=== PATIENT | male | born 1955 | race Caucasian/White ===

== ENCOUNTER → 2017-10-14 | Day surgery (SDC) | payer BC ==
[~2017-10-14] MED LIST: IV RINGERS,LACTATED 1000ML 1,000 ML IV; LIDOCAINE 2% PF Vial for OR 5 ML VIAL.; PROPOFOL 20 ML IV
[2017-10-14] MEDS: IV RINGERS,LACTATED 1000ML 1,000 ML IV (08:05)
== END | disposition home or self-care (01) ==
LOC: SURG 07:16
DX: K29.30 Chronic superficial gastritis without bleeding (principal); K26.9 Duodenal ulcer, unspecified as acute or chronic, without hemorrhage or perforation; I11.0 Hypertensive heart disease with heart failure; I50.9 Heart failure, unspecified; E78.00 Pure hypercholesterolemia, unspecified; I25.2 Old myocardial infarction; Z82.49 Family history of ischemic heart disease and other diseases of the circulatory system; Z79.82 Long term (current) use of aspirin; Z79.899 Other long term (current) drug therapy; Z95.1 Presence of aortocoronary bypass graft; Z98.890 Other specified postprocedural states; Z98.52 Vasectomy status; I25.10 Atherosclerotic heart disease of native coronary artery without angina pectoris; Z95.810 Presence of automatic (implantable) cardiac defibrillator; E66.9 Obesity, unspecified; I48.91 Unspecified atrial fibrillation; M19.90 Unspecified osteoarthritis, unspecified site; F19.90 Other psychoactive substance use, unspecified, uncomplicated; F17.200 Nicotine dependence, unspecified, uncomplicated
CPT/HCPCS: 43239; 88305; 88342; J2704

== ENCOUNTER 2018-09-01 06:48 | Outpatient (CLI) | payer MEDICARE ==
[~2018-09-01] VITALS: Ht 177.8 cm; Wt 108.9 kg
[2018-09-01] VITALS (11 sets, daily range): BP systolic 123–174; BP diastolic 84–111
[~2018-09-01 06:48] MED LIST changes: +APRE30TA2 PO; +ASPI-630 PO; +CETI10TA22 PO; +DOCU-109 PO; +GABA300C18 PO; +HYDR-2769 PO; -IV RINGERS,LACTATED 1000ML 1,000 ML IV; -LIDOCAINE 2% PF Vial for OR 5 ML VIAL.; +LISI-338 PO; +LISI10TA2 PO; +METO-239 PO; +METO200T46 PO; +POTA10TA12 PO; -PROPOFOL 20 ML IV; +SIMV40TA3 PO; +TRAM50TA PO; +[UNRECOGNIZED DRUG - REMARK]
[2018-09-01] MEDS ORDERED: FOLI1TAB16 PO (07:29)
[2018-09-01] MEDS ORDERED: METH2.5T PO (07:29)
[2018-09-01 07:36] LABS: HEMATOCRIT 50.8 % (39.0-53.0); HEMOGLOBIN 17.2 g/dL (13.0-17.5); RED BLOOD COUNT 5.5 x10^6/uL (4.30-5.70); RED CELL DISTRIBUTION WIDTH 15.1 % (11.5-14.5); WHITE BLOOD COUNT 7.9 x10^3/uL (4.0-11.0)
[2018-09-01] MEDS ORDERED: LIDOCAINE 1% Multi-Dose 20 ML VIAL. ONE (07:45)
[2018-09-01] MEDS ORDERED: IOHEXOL 300 MG/ML 100ML VIAL. ONE ×2 (07:45→09:07)
[2018-09-01] MEDS ORDERED: HEPARIN for ARTERIAL LINE 1,500 ML ONE (07:45)
[2018-09-01 07:47] LABS: PROTHROMBIN TIME PATIENT 11.8 SEC (11.7-14.0)
[2018-09-01 07:50] LABS: CALCIUM 9.2 mg/dL (8.5-10.1); CREATININE 0.9 mg/dL (0.7-1.3); GFR 85.2; POTASSIUM 4.2 mmol/L (3.5-5.1)
[2018-09-01] MEDS ORDERED: MIDAZOLAM HCL/PF 2 MG/2 ML VIAL. ONE (08:16)
[2018-09-01] MEDS ORDERED: fentaNYL PF VIAL 100 MCG/2 ML VIAL ONE (08:16)
--- NOTE | 2018-09-01 08:32 | PDOC ---
MODERATE SEDATION ASSESSMENT RISKS/ALTERNATIVES Risks/Alternatives Risks and alternatives of this type of sedation and procedure discussed with: RISK/ALTERNATIVES: Patient H & P ON CHART H & P H & P on chart and reviewed for co-morbid conditions and appropriate labs. H&P ON CHART: Yes STATUS PREG STATUS ASSESSED: N/A MEDS/ALLERGIES REVIEWED Meds/Allergies Reviewed Medications and Allergies including time and route of recently administered narcotics and sedatives. MEDS/ALLERGIES REVIEWED: Yes ASA RATING ASA RATING: II AIRWAY ASSESSMENT Airway Assessment Airway patency, oral function limitations, presence of caps, crowns, dentures, partials, and ability to extend neck assessed. AIRWAY ASSESSMENT: Yes MALLAMPATI SCORE MALLAMPATI SCORE: II PRE-SEDATION ASSESSMENT PRE-SEDATION ASSESSMENT: Yes NICHOLAS MIRELES MD Sep 01, 2018 08:31
[2018-09-01] MEDS ORDERED: HEPARIN for IV BOLUS 10,000 UNIT/10 ML VIAL. ONE (09:00)
[2018-09-01] MEDS ORDERED: fentaNYL PF VIAL 100 MCG/2 ML VIAL IV ONE (09:15)
[2018-09-01] MEDS ORDERED: MIDAZOLAM HCL/PF 2 MG/2 ML VIAL. IV ONE (09:15)
[2018-09-01] MEDS ORDERED: IOHEXOL 300 MG/ML 100ML VIAL. IART ONE (09:15)
[2018-09-01] MEDS ORDERED: HEPARIN for IV BOLUS 10,000 UNIT/10 ML VIAL. IV ONE (09:15)
[2018-09-01] MEDS ORDERED: LIDOCAINE 1% Multi-Dose 20 ML VIAL. INJ ONE (09:15)
[2018-09-01] MEDS ORDERED: NITROGLYCERIN SUBLINGUAL 0.4 MG BOTTLE OF 25. SL PRN (10:15)
[2018-09-01] MEDS ORDERED: IV NORMAL SALINE 1000ML BAG 1,000 ML IV SCH (10:15)
[2018-09-01] MEDS ORDERED: 0.9 % SODIUM CHLORIDE 10 ML DISP.SYRIN. IV PRN (10:15)
--- NOTE | 2018-09-01 12:49 | NUR ---
Discharge Note: [facility] Discharge instructions and discharge home medications reviewed with Patient and a copy given. All questions have been answered and understanding verbalized. The following instructions and handouts were given: moderate sedation and groin site care Discontinued lines and drains: Peripheral IV intact. Patient discharged to Home or Self Care withSpousevia Wheelchair
--- NOTE | 2018-09-01 13:04 | CARD ---
MR#: [id number] Date of Study: 09/01/2018 Ordering Physician: JOSE COLE, Referring Physician: JOSE COLE, Tech: Ana Rose, RT (R) APPROVED REPORT Procedures Left heart catheterization Selective coronary angiogram Left ventriculogram VALDEZ graft injection Saphenous vein graft injection The patient is a 63-year-old male with a history of previous bypass surgery and decreased LV function . He is being evaluated for possible VT ablation. Heart catheterization was recommended prior to furt her consideration of a VT ablation. This was discussed with the patient. Risks and benefits were disc ussed. The patient agreed to proceed. After informed consent was obtained the patient was brought to the heart catheterization lab. The are a of the right femoral artery was prepared the usual manner with Betadine, sterile draping and local anesthetic. An 18-gauge needle was used to enter the right femoral artery, a wire placed and a 6 Fren ch sheath placed over the wire. A 6 Danish JL4 diagnostic catheter was advanced to the ascending aort a. It was used to engage the left system and sequential injections in various views were obtained. A 6 Danish JR4 diagnostic catheter was advanced to the ascending aorta. It was used to engage the right coronary artery and an injection was obtained. It was then used to engage the saphenous vein graft t o the right coronary artery and an injection made. 1000 units of heparin were administered and the sa me catheter was used to engage the left subclavian vessel, a wire placed and a VALDEZ graft catheter pl aced over the wire. This catheter was then used to engage the VALDEZ graft and sequential injections in various views were obtained. A pigtail catheter was advanced to the ascending aorta and the left wilfrid tricle. A 30 [place] left ventriculogram was performed. Pullback pressures were measured. The catheter w as removed from the patient. All exchanges were made over a wire. Injection of the sheath showed norm al placement. The sheath was removed and sealed with an Angio-Seal product. The patient was moved to the holding area in stable condition. Findings. Hemodynamics. LV pressure 138/6, 14. Aortic root pressure of 134/78. Coronaries. All coronaries were heavily calcified. Left main. The left main was a normal-size vessel with a distal 15% lesion. Left anterior descending. The LAD was a moderate size vessel. It had a proximal 25% lesion and a mid total occlusion. The first diagonal branch had a 35% lesion. Left circumflex. The left circumflex was a moderate size dominant vessel. It had a mid 50-60% lesion which was unchanged from previous catheterization approximately 2 years ago. Right coronary artery. 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 Grafts. VALDEZ graft to the LAD was widely patent to a good vessel. Saphenous vein graft to the right coronary was proximally occluded as it was on previous catheterizat ion. Left ventriculogram. The left ventricle showed inferior basilar akinesis, apical hypokinesis and ejection fraction of 30-3 5%. 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 Moderate disease in left circumflex system. Patent VALDEZ graft to the LAD. Occluded saphenous vein graft to the right coronary artery. Decreased LV systolic function with an ejection fraction of 30-35%. No significant changes from previous catheterization approximately 2 years ago. Signed by : Jose Cole MD Electronically Approved : 09/01/2018 13:03:44
== END 2018-09-01 13:00 | disposition home or self-care (01) ==
LOC: CCL 06:48
PROVIDERS: ATTEND Internal Medicine Cardiovascular Disease
DX: I25.10 Atherosclerotic heart disease of native coronary artery without angina pectoris (principal); I11.0 Hypertensive heart disease with heart failure; I50.22 Chronic systolic (congestive) heart failure; Z95.1 Presence of aortocoronary bypass graft; Z79.82 Long term (current) use of aspirin; Z79.899 Other long term (current) drug therapy; I25.5 Ischemic cardiomyopathy; Z95.810 Presence of automatic (implantable) cardiac defibrillator; E78.5 Hyperlipidemia, unspecified; Z90.81 Acquired absence of spleen; Z98.890 Other specified postprocedural states; Z82.61 Family history of arthritis; Z80.1 Family history of malignant neoplasm of trachea, bronchus and lung; F17.210 Nicotine dependence, cigarettes, uncomplicated; Z72.89 Other problems related to lifestyle
CPT/HCPCS: 36415; 80048; 85027; 85610; 93459; 99152; 99153; C1769; C1892; J1644; J2250; J3010; J7030; Q9967

== ENCOUNTER → 2018-11-12 | Outpatient (CLI) | payer MEDICARE ==
[~2018-11-12] MED LIST changes: +CONTRAST GIVEN. MC PRN; +FOLI1TAB16 PO; +IOHEXOL 180 MG/ML 10 ML VIAL. IJ ONE; +IOHEXOL 300 MG/ML 50 ML VIAL. IJ ONE; +LIDOCAINE WITH 8.4% SOD BICARB 3 ML DISP.SYRIN. INJ ONE; +METH2.5T PO
[2018-11-12 11:55] VITALS: BP 117/87
[2018-11-12 13:00] VITALS: BP 135/80
--- NOTE | 2018-11-12 13:10 | NUR ---
myelogram site is clean and dry. pt denies pain, nausea or dizziness. tolerating po well. VSS. ambulated to BR w/o problem. d/c instructions reviewed. questions answered. left unit w/ , ambulating out to vehicle.
--- NOTE | 2018-11-12 16:02 | RAD ---
Examination: MYELOGRAPHY LUMBOSACRAL History: Lower back pain. Comparison/Correlation: None Findings: Risks and benefits of lumbar myelogram were discussed with the patient and informed consent was obtained. Fluoroscopy was utilized for 5.2 minutes. A total of 22 images were acquired. The patient was placed in the CHINESE position. Preliminary fluoroscopic imaging was performed. Cleansing with Betadine swabs was performed. Sterile drape was placed. Total of 15 cc 1 percent lidocaine was utilized for this procedure. Sacralization of L5 is noted. The L3-4 level was selected. Interlaminar approach was utilized. Multiple passes were made with 22 and 20-gauge spinal needles by myself and were not successful. Subsequently, Dr. Guadarrama also had performed multiple times and was successful in obtaining intrathecal access at this level. A total of 12 cc Omnipaque 180 was administered intrathecally. Contrast is noted to flow freely through the lumbar spine into the thoracic spine level. The patient tolerated procedure well without immediate comp occasions. Impression: Successful intrathecal administration of contrast for CT myelogram. Electronically signed by: Otoniel Petit MD (11/12/2018 3:59 PM) [facility]
--- NOTE | 2018-11-12 16:17 | RAD ---
Examination: CT LUMBAR SPINE W/CONTRAST History: Low back pain Comparison/Correlation: None Findings: Axial images of the lumbar spine were obtained following intrathecal administration of contrast. Sagittal and coronal reformatted images were provided. T11-12: Unremarkable T12-L1: Mild concentric disc bulge L1-2: Mild disc space narrowing with concentric disc bulge L2-3: Facet joint degenerative hypertrophy is notable bilaterally. Effacement of the thecal sac is noted. Ligamentum flavum hypertrophy noted. Mild spinal canal stenosis. L3-4: Concentric disc bulge. Facet joint degenerative hypertrophy is present. Effacement of the thecal sac noted. No definite nerve root effacement. L4-5: Vacuum phenomenon is present. Central disc protrusion is present. Extension along the posterior margin of L5 vertebral body superiorly is noted. Narrowing of the left neural foramen at this level is notable with suggestion of nerve root compression. L5-S1: Sacralization of L5. Unremarkable otherwise. Visualized retroperitoneal soft tissues are unremarkable for the patient's age. Vertebral body heights are adequate. Disc space heights are mostly adequate. Impression: Central disc protrusion at L4-5. Extension of disc along the posterior margin of the L5 vertebral body. Significant left neural foraminal narrowing at this level. Nerve root compression is suspected. Marked facet joint hypertrophy and thecal sac effacement at this level. L3-4 concentric disc bulge with thecal sac effacement. Other degenerative changes also as stated above. Electronically signed by: Otoniel Petit MD (11/12/2018 4:14 PM) [facility]
== END | disposition home or self-care (01) ==
LOC: RAD 09:58
PROVIDERS: ATTEND General Practice
DX: M51.25 Other intervertebral disc displacement, thoracolumbar region (principal); M48.061 Spinal stenosis, lumbar region without neurogenic claudication; M47.816 Spondylosis without myelopathy or radiculopathy, lumbar region
CPT/HCPCS: 72132; 72265; Q9965; Q9967

== ENCOUNTER → 2020-03-29 | Outpatient (CLI) | payer MEDICARE ==
[2018-11-12 13:00] VITALS: BP 135/80
[~2020-03-29] MED LIST changes: -CETI10TA22 PO; +CETI10TA74 PO; -CONTRAST GIVEN. MC PRN; -IOHEXOL 180 MG/ML 10 ML VIAL. IJ ONE; -IOHEXOL 300 MG/ML 50 ML VIAL. IJ ONE; -LIDOCAINE WITH 8.4% SOD BICARB 3 ML DISP.SYRIN. INJ ONE; +SIMV40TA18 PO; -SIMV40TA3 PO
== END ==
LOC: LAB 13:13
PROVIDERS: ATTEND Internal Medicine Pulmonary Disease
DX: Z01.812 Encounter for preprocedural laboratory examination (principal); J44.9 Chronic obstructive pulmonary disease, unspecified; Z20.828 Contact with and (suspected) exposure to other viral communicable diseases
CPT/HCPCS: U0003

== ENCOUNTER → 2020-04-02 | Outpatient (CLI) | payer MEDICARE ==
[2018-11-12 13:00] VITALS: BP 135/80
--- NOTE | 2020-04-04 09:15 | RESP ---
DATE OF SERVICE: 04/02/2020 PULMONARY FUNCTION TEST REFERRED BY: Dr. Jay The patient's FVC was 1.75, which is 39% predicted, FEV1 0.93, which is 28% predicted. The FEV1/FVC ratio was reduced. Post-bronchodilator, there was 19% improvement in FVC and 23% improvement in FEV1. Lung volume showed increased total lung capacity of 174% predicted and residual volume of 441% predicted. Diffusion capacity was normal. IMPRESSION: 1. Severe obstructive airway disease. 2. Excellent response to bronchodilators. 3. Lung volumes consistent with hyperinflation and air trapping. 4. Normal diffusion capacity. HUNTER DACOSTA MD DR: CASEY/ashley JOB#: [id number] / [id number]
== END ==
LOC: PF 08:25
PROVIDERS: ATTEND Internal Medicine Pulmonary Disease
DX: J44.9 Chronic obstructive pulmonary disease, unspecified (principal)
CPT/HCPCS: 94060; 94640; 94726; 94729; 94664

== ENCOUNTER → 2020-11-05 | Outpatient (CLI) | payer MEDICARE ==
[2018-11-12 13:00] VITALS: BP 135/80
[~2020-11-05] MED LIST changes: -LISI-338 PO; +LISI-517 PO; +LISI10TA16 PO; -LISI10TA2 PO
--- NOTE | 2020-11-06 11:48 | CARD ---
MR#: [id number] Date of Study: 11/05/2020 Ordering Physician: NICHOLAS MIRELES, Referring Physician: NICHOLAS MIRELES, Tech: Stephanie Taylor [facility] APPROVED REPORT EXAM: Two-dimensional and M-mode echocardiogram with Doppler and color Doppler. Other Information Quality : Technically LimitedHR: 66bpm Rhythm : NSR INDICATION Cardiac Disease: CAD RISK FACTORS Hypertension Obesity Hyperlipidemia 2D DIMENSIONS RVDd3.3 (2.9-3.5cm)Left Atrium(2D)4.4 (1.6-4.0cm) IVSd1.3 (0.7-1.1cm)Aortic Root(2D)3.6 (2.0-3.7cm) LVDd5.1 (3.9-5.9cm)LVOT Diameter2.5 (1.8-2.4cm) PWd1.2 (0.7-1.1cm)LVDs3.9 (2.5-4.0cm) FS (%) 23.9 %SV59.8 ml LVEF(%)47.4 (>50%) Aortic Valve AoV Peak Neri.102.6cm/sAoV VTI18.4cm AO Peak GR.4.2mmHgLVOT Peak Neri.83.3cm/s AO Mean GR.2mmHgAVA (VMAX)3.98cm2 Mitral Valve MV E Vvoglhzy65.1cm/sMV DECEL [id number] MV A Bedpdgtr09.0cm/sE/A Ratio1.0 Pulmonary Valve PV Peak Urfdqlqn50.9cm/s LEFT VENTRICLE The left ventricle is normal size. There is mild concentric left ventricular hypertrophy. The left ve ntricular systolic function is normal. Estimated ejection fraction 55-60%. There is normal LV segmen michele wall motion. The left ventricular diastolic function and filling is normal for age. RIGHT VENTRICLE The right ventricle is normal size. There is normal right ventricular wall thickness. The right ventr icular systolic function is normal. ATRIA The left atrium size is normal. The right atrium size is normal. The interatrial septum is intact wit h no evidence for an atrial septal defect or patent foramen ovale as noted on 2-D or Doppler imaging. AORTIC VALVE The aortic valve is normal in structure and function. Doppler and Color Flow revealed no significant aortic regurgitation. There is no significant aortic valvular stenosis. MITRAL VALVE The mitral valve is normal in structure and function. There is no evidence of mitral valve prolapse. There is no mitral valve stenosis. Doppler and Color-flow revealed trace to mild mitral regurgitation . TRICUSPID VALVE The tricuspid valve is normal in structure and function. Doppler and Color Flow revealed no tricuspid valve regurgitation noted. There is no tricuspid valve stenosis. PULMONIC VALVE The pulmonary valve is normal in structure and function. Doppler and Color Flow revealed no pulmonic valvular regurgitation. GREAT VESSELS The aortic root is mildly enlarged. The IVC is normal in size and collapses >50% with inspiration. PERICARDIAL EFFUSION There is no evidence of significant pericardial effusion. Critical Notification Critical Value: No <Conclusion> The left ventricular systolic function is normal. Estimated ejection fraction 55-60%. There is normal LV segmental wall motion. Trace to mild mitral regurgitation. There is no evidence of significant pericardial effusion. Signed by : John Gross, Electronically Approved : 11/06/2020 11:48:18
== END ==
LOC: ECHO 13:01
PROVIDERS: ATTEND Internal Medicine Cardiovascular Disease
DX: I34.0 Nonrheumatic mitral (valve) insufficiency (principal); I11.9 Hypertensive heart disease without heart failure
CPT/HCPCS: 93306